=== PATIENT | female | born 1995 | race American Indian/Alaskan Native ===

== ENCOUNTER 2017-08-06 03:42 | Emergency (ER) | payer OTHER ==
[2017-08-06 04:30] LABS: Basophils % (Auto) 0.6 % (0.0-1.8); Eosinophils % (Auto) 1.1 % (0.0-4.3); Hemoglobin 10.5 gm/dl (10.1-14.3); Mean Corpuscular HGB Conc 34 % (30-34); Mean Corpuscular Hemoglobin 31 pg (28-32); Mean Corpuscular Volume 92 fl (79-97); Platelet Count 375 K/mm3 (140-440); Red Blood Count 3.38 M/mm3 (3.65-5.03); Red Cell Distribution Width 12.4 % (13.2-15.2); White Blood Count 11.6 K/mm3 (4.5-11.0)
[2017-08-06] MEDS ORDERED: NACL 0.9% 1000 ML 1,000 ML IV ONE (04:37)
[2017-08-06] MEDS ORDERED: PEPCID IV ONE (04:39)
--- NOTE | 2017-08-06 04:44 | Emergency Department Report ---
ED Abdominal Pain HPI - General Chief Complaint: Chest Pain Stated Complaint: CP Time Seen by Provider: 08/06/17 04:32 Source: patient Mode of arrival: Ambulatory Limitations: No Limitations - History of Present Illness Initial Comments: Patient is 22 years old female, 9 weeks presented with epigastric pain that is start all of a sudden while she was sleeping. Patient describes her pain as starting from the epigastric area going all over after her throat. Patient denied any chest pain or short shortness of breath. No fever. MD Complaint: abdominal pain -: Sudden Location: epigastric Radiation: chest Migration to: no migration Severity: moderate Severity scale (0 -10): 4 Consistency: constant - Related Data Allergies Allergy/AdvReac Type Severity Reaction Status Date / Time No Known Allergies Allergy Unverified 08/06/17 04:07 ED Review of Systems ROS: Stated complaint: CP Other details as noted in HPI Comment: All other systems reviewed and negative Constitutional: denies: chills, diaphoresis Respiratory: denies: cough, orthopnea, shortness of breath, SOB with exertion Cardiovascular: denies: chest pain, palpitations Gastrointestinal: abdominal pain. denies: nausea, vomiting, diarrhea, constipation, hematemesis Genitourinary: frequency. denies: dysuria Neurological: denies: headache, weakness, numbness ED Past Medical Hx - Past Medical History Previous Medical History?: No - Surgical History Past Surgical History?: No - Social History Smoking Status: Never Smoker Substance Use Type: None ED Physical Exam - General Limitations: No Limitations General appearance: alert, in no apparent distress, anxious - Head Head exam: Present: atraumatic, normocephalic, normal inspection - Eye Eye exam: Present: normal appearance, PERRL - ENT ENT exam: Present: normal exam, normal orophraynx, mucous membranes moist - Neck Neck exam: Present: normal inspection, full ROM. Absent: tenderness, meningismus, lymphadenopathy, thyromegaly - Respiratory Respiratory exam: Present: normal lung sounds bilaterally - Cardiovascular Cardiovascular Exam: Present: regular rate, normal rhythm, normal heart sounds - GI/Abdominal GI/Abdominal exam: Present: soft, normal bowel sounds. Absent: distended, tenderness, guarding, rebound, rigid, diminished bowel sounds, organomegaly, mass, bruit, pulsatile mass, hernia - Extremities Exam Extremities exam: Present: normal inspection, full ROM, normal capillary refill - Back Exam Back exam: Present: normal inspection. Absent: CVA tenderness (R), CVA tenderness (L) - Neurological Exam Neurological exam: Present: alert, oriented X3, CN II-XII intact, normal gait - Skin Skin exam: Present: warm, intact, normal color. Absent: cyanosis, diaphoretic, erythema, urticaria ED Course Vital Signs 08/06/17 08/06/17 08/06/17 03:57 04:03 04:40 Temperature 99.1 F 99.1 F Pulse Rate 95 H 102 H Respiratory 20 Rate Blood Pressure 113/43 113/43 O2 Sat by Pulse 100 100 78 L Oximetry 08/06/17 08/06/17 05:00 05:02 Temperature 98.4 F Pulse Rate 85 Respiratory 17 14 Rate Blood Pressure 107/56 O2 Sat by Pulse 99 Oximetry - Reevaluation(s) Reevaluation #1: 08/06/17 05:52 Patient stated that she is feeling much better, pain is almost resolved. ED Medical Decision Making - Lab Data Result diagrams: 08/06/17 04:17 08/06/17 04:17 Critical care attestation.: If time is entered above; I have spent that time in minutes in the direct care of this critically ill patient, excluding procedure time. ED Disposition Clinical Impression: Abdominal pain affecting Disposition: DC-01 TO HOME OR SELFCARE Is pt being admited?: No Condition: Stable Instructions: Gastroesophageal Reflux Disease (ED)
[2017-08-06 04:47] LABS: Anion Gap 19 mmol/L; BUN/Creatinine Ratio 13; Blood Urea Nitrogen 5 mg/dL (7-17); Calcium 9.1 mg/dL (8.4-10.2); Carbon Dioxide 20 mmol/L (22-30); Chloride 98.8 mmol/L (98-107); Glucose 100 mg/dL (65-100); Potassium 3.9 mmol/L (3.6-5.0); Sodium 134 mmol/L (137-145)
[2017-08-06 06:11] VITALS: BP 103/52
[2017-08-06 06:20] LABS: Bacteria,Urine 4+ /HPF (Negative); Bilirubin,Urine NEG (Negative); Blood,Urine NEG (Negative); Ketones,Urine NEG (Negative); Leukocyte Esterase,Urine NEG (Negative); Mucus,Urine FEW /HPF; Nitrite,Urine NEG (Negative); Protein,Urine <15 mg/dL mg/dL (Negative); Urobilinogen,Urine < 2.0 mg/dL (<2.0)
== END 2017-08-06 06:30 | disposition home or self-care (01) ==
LOC: ED 03:42
DX: O26.891 Other specified pregnancy related conditions, first trimester (principal); R10.13 Epigastric pain; Z53.21 Procedure and treatment not carried out due to patient leaving prior to being seen by health care provider; Z3A.09 9 weeks gestation of pregnancy
CPT/HCPCS: 36415; 80048; 81001; 84484; 85025; 93005; 93010; 96361; 96374; 99284; J7030

== ENCOUNTER 2018-02-12 22:44 | Outpatient (CLI) | payer OTHER ==
[2018-02-12 23:21] VITALS: BP 118/58
== END 2018-02-13 00:03 | disposition home or self-care (01) ==
LOC: TRG 22:44
PROVIDERS: ATTEND Obstetrics & Gynecology
DX: O47.1 False labor at or after 37 completed weeks of gestation (principal); Z3A.38 38 weeks gestation of pregnancy
CPT/HCPCS: 59025

== ENCOUNTER 2018-02-28 15:43 | Inpatient (IN) | payer OTHER ==
[2018-02-28] MEDS ORDERED: ePHEDrine SULFATE IV PRN (19:01)
[2018-02-28] MEDS ORDERED: BRETHINE SUB-Q PRN (19:01)
[2018-02-28] MEDS ORDERED: MINERAL OIL PO PRN (19:01)
[2018-02-28] MEDS ORDERED: XYLOCAINE 2% INFILTRATI ONE (19:01)
[2018-02-28] MEDS ORDERED: PHENERGAN PO PRN (19:01)
[2018-02-28] MEDS ORDERED: BRETHINE IVP PRN (19:01)
[2018-02-28] MEDS ORDERED: NARCAN 0.4 MG/1 ML IV PRN (19:01)
[2018-02-28] MEDS ORDERED: STADOL IV PRN (19:01)
[2018-02-28] MEDS ORDERED: ZOFRAN IV PRN (19:01)
[2018-02-28 19:26] LABS: Hemoglobin 10.9 gm/dl (10.1-14.3); Mean Corpuscular HGB Conc 33 % (30-34); Mean Corpuscular Hemoglobin 30 pg (28-32); Mean Corpuscular Volume 90 fl (79-97); Platelet Count 417 K/mm3 (140-440); Red Blood Count 3.69 M/mm3 (3.65-5.03); Red Cell Distribution Width 13.6 % (13.2-15.2)
[2018-02-28] MEDS: LACTATED RINGERS 1,000 ML IV SCH (19:54)
[2018-02-28] MEDS ORDERED: PITOCin/NS 30 UNIT/500ML 30 UNITS/500 ML BAG IV SCH ×2 (20:00)
[2018-02-28] MEDS ORDERED: PITOCin/NS 20 UNIT/1000ML DRIP 20 UNITS/1,000 ML BAG IV SCH (20:00)
--- NOTE | 2018-02-28 23:34 | History and Physical Report ---
History of Present Illness Date of examination: 02/28/18 Date of admission: 02/28/18 15:43 Chief complaint: sent over to hospital for IOL for BPP 4/8 History of present illness: This is a 22 yo at 40+2 weeks that was seen in clinic for routine visit and noted to have a BPP 4/10. it was decided to begin and initate IOL .She is apatient of [facility] late in starting at 27 weeks. During her care it was noted that patient ws poly but resolved in 02/01. GBS neg. Past History Past Medical History: no pertinent history Past Surgical History: no surgical history Family/Genetic History: hypertension (mother) Social history: . denies: smoking, alcohol abuse, prescription drug abuse - Obstetrical History Expected Date of Delivery: 02/26/18 Actual Gestation: 40 Week(s) 2 Day(s) : 1 Para: 0 Hx # Term Pregnancies: 0 Number of Pregnancies: 0 Spontaneous Abortions: 0 Induced : 0 Number of Living Children: 0 Medications and Allergies Allergies Allergy/AdvReac Type Severity Reaction Status Date / Time No Known Allergies Allergy Verified 02/28/18 19:15 Home Medications Medication Instructions Recorded Confirmed Last Taken Type Famotidine [Pepcid] 20 mg PO QHS #5 tablet 08/06/17 02/28/18 Unknown Rx Nitrofurantoin Randolph/M-Cryst 100 mg PO Q12HR #14 capsule 08/06/17 02/28/18 Unknown Rx [Macrobid CAP] Active Meds: Active Medications Butorphanol Tartrate (Stadol) 2 mg IV Q2H PRN PRN Reason: Pain , Severe (7-10) Ephedrine Sulfate (Ephedrine Sulfate) 10 mg IV Q2M PRN PRN Reason: Hypotension Fentanyl (Sublimaze) 100 mcg IV Q2H PRN PRN Reason: Labor Pain Lactated Ringer's (Lactated Ringers) 1,000 mls @ 125 mls/hr IV DIRECT MITCHELL Last Admin: 02/28/18 19:54 Dose: 125 mls/hr Oxytocin/Sodium Chloride (Pitocin/Ns 20 Unit/1000ml Drip) 20 units in 1,000 mls @ 125 mls/hr IV DIRECT MITCHELL Oxytocin/Sodium Chloride (Pitocin/Ns 30 Unit/500ml) 30 units in 500 mls @ 1 mls /hr IV TITR MITCHELL; Protocol Oxytocin/Sodium Chloride (Pitocin/Ns 30 Unit/500ml) 30 units in 500 mls @ 0 mls /hr IV TITR MITCHELL; Protocol Mineral Oil (Mineral Oil) 30 ml PO QHS PRN PRN Reason: Constipation Naloxone HCl (Narcan 0.4 Mg/1 Ml) 0.1 mg IV Q2MIN PRN PRN Reason: Res Rate </= 8 or 02 SAT < 92% Ondansetron HCl (Zofran) 4 mg IV Q8H PRN PRN Reason: Nausea And Vomiting Promethazine HCl (Phenergan) 25 mg PO Q6H PRN PRN Reason: Nausea And Vomiting Terbutaline Sulfate (Brethine) 0.25 mg SUB-Q ONCE PRN PRN Reason: Hyperstimulation/Hypertonicity Terbutaline Sulfate (Brethine) 0.25 mg IVP ONCE PRN PRN Reason: Hyperstimulation/Hypertonicity Review of Systems All systems: negative - Vital Signs Vital signs: Vital Signs Pulse Pulse Ox 109 H 99 02/28/18 16:11 02/28/18 16:11 Temp Pulse Resp BP Pulse Ox 98.9 F 81 16 104/51 99 02/28/18 19:16 02/28/18 22:54 02/28/18 19:16 02/28/18 22:54 02/28/18 18:31 - Physical Exam Breasts: Positive: normal Cardiovascular: Regular rate, Normal S1 Lungs: Positive: Clear to auscultation, Normal air movement Abdomen: Positive: normal appearance, soft, normal bowel sounds. Negative: distention, tenderness, guarding Genitourinary (Female): Positive: normal external genitalia, normal perenium Vulva: both: normal Uterus: Positive: normal size Anus/Rectum: Positive: normal perianal skin Extremities: Positive: normal Deep Tendon Reflex Grade: Normal +2 - Obstetrical FHR: category 1 Cervical Dilatation: 1 Cervical Effacement Percentage: 50 station: -3 Uterine Contraction Pattern: Irregular Uterine Tone Measurement Phase: Contraction Uterine Contraction Intensity: Mild Results Result Diagrams: 02/28/18 16:15 All other labs normal. Assessment and Plan A/P HD#1 IOL for BPP 11/20 admit with close monirot of and maternal status will consider low dose pitocin for ripening IVF, labs expect vaginal delivery offer epidural when appropriate
[2018-03-01] MEDS: LACTATED RINGERS 1,000 ML IV SCH ×3 (03:19→22:56)
[2018-03-01] MEDS: SUBLIMAZE IV PRN ×2 (13:48→17:22)
--- NOTE | 2018-03-01 14:06 | Progress Note ---
Assessment and Plan A: IUP at 40w3d BPP 4/10 undergoing induction of labor P: Continue routine intrapartum management Closely monitor maternal and status Subjective - Subjective Date of service: 03/01/18 Principal diagnosis: BPP 4/10 undergoing induction of labor Interval history: Pt uncomfortable with contractions presently. s/p low dose pitocin overnight. Patient reports: contractions, no new complaints, no loss of fluid, no vaginal bleeding Objective - Vital Signs Vital Signs: Vital Signs - 12hr 03/01/18 03/01/18 03/01/18 02:24 02:30 02:55 Temperature 98.3 F Pulse Rate 91 H 91 H 82 Respiratory 16 Rate Blood Pressure 105/55 113/62 Blood Pressure 105/55 [Right] O2 Sat by Pulse Oximetry 03/01/18 03/01/18 03/01/18 03:54 04:54 05:55 Temperature Pulse Rate 77 76 88 Respiratory Rate Blood Pressure 110/57 118/56 119/56 Blood Pressure [Right] O2 Sat by Pulse Oximetry 03/01/18 03/01/18 03/01/18 06:17 06:23 06:55 Temperature 97.9 F Pulse Rate 80 80 78 Respiratory 16 Rate Blood Pressure 118/56 124/55 Blood Pressure 118/56 [Right] O2 Sat by Pulse Oximetry 03/01/18 03/01/18 03/01/18 07:56 10:18 10:54 Temperature Pulse Rate 85 62 72 Respiratory Rate Blood Pressure 112/55 112/53 Blood Pressure [Right] O2 Sat by Pulse 100 Oximetry 03/01/18 13:54 Temperature Pulse Rate 71 Respiratory Rate Blood Pressure 116/59 Blood Pressure [Right] O2 Sat by Pulse Oximetry - Exam Breasts: deferred Abdomen: Present: normal appearance (gravid ) FHR: category 2 Uterine Contraction Monitor Mode: External Cervical Dilatation: 2 Cervical Effacement Percentage: 80 station: -3 Uterine Contraction Pattern: Irregular Uterine Tone Measurement Phase: Resting Extremities: normal - Labs Labs: Laboratory Results - last 24 hr 02/28/18 02/28/18 02/28/18 16:15 16:15 16:15 WBC 10.6 RBC 3.69 Hgb 10.9 Hct 33.0 MCV 90 MCH 30 MCHC 33 RDW 13.6 Plt Count 417 RPR Nonreactive Blood Type O POSITIVE Antibody Screen Negative
[2018-03-01] MEDS ORDERED: NARCAN 2 MG/2 ML IV PRN (21:51)
[2018-03-01] MEDS ORDERED: ePHEDrine SULFATE IV PRN (21:51)
--- NOTE | 2018-03-01 21:51 | Anesthesia Consultation ---
Anesthesia Consult and Med Hx Date of service: 03/01/18 - Airway Anesthetic Teeth Evaluation: Good ROM Head & Neck: Adequate Mental/Hyoid Distance: Adequate Mallampati Class: Class II Intubation Access Assessment: Good - Pulmonary Exam CTA: Yes - Cardiac Exam Cardiac Exam: No Murmur - Pre-Operative Health Status ASA Pre-Surgery Classification: ASA2 Proposed Anesthetic Plan: Epidural - Pulmonary Hx Asthma: No COPD: No Hx Pneumonia: No - Cardiovascular System Hx Hypertension: No - Central Nervous System Hx Seizures: No Hx Psychiatric Problems: No - Endocrine Hx Renal Disease: No Hx End Stage Renal Disease: No Hx Hypothyroidism: No Hx Hyperthyroidism: No - Hematic Hx Anemia: No Hx Sickle Cell Disease: No - Other Systems Hx Alcohol Use: No
[2018-03-01] MEDS: fentaNYL-BUPIV 2 MCG/ML-0.125% 200 MCG/100 ML BAG EPIDURAL SCH (22:56)
[2018-03-02] MEDS: fentaNYL-BUPIV 2 MCG/ML-0.125% 200 MCG/100 ML BAG EPIDURAL SCH ×2 (06:38→14:36)
[2018-03-02] MEDS: LACTATED RINGERS 1,000 ML IV SCH (14:35)
[2018-03-02] MEDS ORDERED: MARCAINE 0.5% 30 ML INFILTRATI ONE (17:55)
[2018-03-02] MEDS ORDERED: XYLOCAINE 2% INFILTRATI ONE ×2 (21:20→21:59)
--- NOTE | 2018-03-02 21:37 | Procedure Note ---
OB Delivery Note - Delivery Date of Delivery: 03/02/18 Surgeon: BENSON NOONAN Estimated blood loss: 200cc - Vaginal Delivery presentation: vertex Delivery position: OA Intrapartum events: none Delivery induction: oxytocin Delivery augmentation: rupture of membranes Delivery monitor: external FHT, external uterine Route of delivery: Delivery placenta: spontaneous Delivery cord: 3 umbilical vessels Delivery laceration: 2nd degree Delivery repair: vicryl Anesthesia: epidural - Infant A at 1 minute: 8 at 5 minutes: 9 Gender: Female (7 pounds 13 ounces)
[2018-03-02] MEDS ORDERED: DULCOLAX PR PRN (23:40)
[2018-03-02] MEDS ORDERED: MILK OF MAGNESIA PO PRN (23:40)
[2018-03-02] MEDS ORDERED: TYLENOL PO PRN (23:40)
[2018-03-02] MEDS ORDERED: LANSINOH TP PRN (23:40)
[2018-03-02] MEDS ORDERED: TUCKS PAD TP PRN (23:40)
[2018-03-02] MEDS ORDERED: SODIUM CHLORIDE FLUSH SYRINGE 10 ML IV PRN (23:40)
[2018-03-02] MEDS ORDERED: PHENERGAN PR PRN (23:40)
[2018-03-02] MEDS ORDERED: NORCO 5/325 PO PRN (23:40)
[2018-03-02] MEDS ORDERED: ZOFRAN IV PRN (23:40)
[2018-03-02] MEDS ORDERED: PHENERGAN PO PRN (23:40)
[2018-03-02] MEDS ORDERED: BENADRYL PO PRN (23:40)
[2018-03-02] MEDS: MOTRIN PO SCH (23:59)
[2018-03-02] MEDS: COLACE PO SCH (23:59)
[2018-03-03] MEDS: MOTRIN PO SCH ×3 (05:34→18:10)
[2018-03-03] MEDS ORDERED: BOOSTRIX IM ONE (06:00)
[2018-03-03] MEDS ORDERED: PRENATAL VITAMIN PO SCH (10:00)
[2018-03-03] MEDS: COLACE PO SCH (10:03)
[2018-03-03 14:25] LABS: Hematocrit 31.7 % (30.3-42.9); Hemoglobin 10.4 gm/dl (10.1-14.3)
--- NOTE | 2018-03-03 15:48 | Progress Note ---
Assessment and Plan PPD 1 s/p . Doing well. Patient's requesting discharge on tonight at the 24 hour [place]. Will discharge mom if baby ok to go. Subjective - Subjective Date of service: 03/03/18 Principal diagnosis: BPP 4/10 undergoing induction of labor Patient reports: appetite normal, voiding normally, pain well controlled, ambulating normally : doing well Objective - Vital Signs Latest vital signs: Vital Signs Temp Pulse Resp BP BP Pulse Ox 03/03/18 12:19 18 03/03/18 12:00 97.9 F 84 18 109/66 03/03/18 08:00 97.5 F L 84 20 108/61 03/03/18 04:30 98.6 F 96 H 18 123/68 03/03/18 00:40 99.1 F 75 18 107/44 03/02/18 23:04 91 H 147/67 03/02/18 22:57 92 H 98 03/02/18 22:52 100 H 99 03/02/18 22:50 102 H 152/69 03/02/18 22:47 91 H 99 03/02/18 22:42 87 98 03/02/18 22:37 100 H 152/80 03/02/18 22:36 96 03/02/18 22:19 109 H 169/88 03/02/18 22:05 111 H 137/47 03/02/18 22:03 101 H 97 03/02/18 21:58 102 H 98 03/02/18 21:53 93 H 99 03/02/18 21:49 92 H 155/72 03/02/18 21:48 91 H 99 03/02/18 21:45 99.1 F 03/02/18 21:43 100 H 99 03/02/18 21:38 100 H 99 03/02/18 21:35 103 H 148/101 03/02/18 21:34 108 H 94 03/02/18 21:33 109 H 94 03/02/18 21:27 119 H 136/74 93 03/02/18 21:24 92 03/02/18 21:21 117 H 96 03/02/18 21:16 102 H 98 03/02/18 21:10 105 H 99 03/02/18 21:05 107 H 98 03/02/18 21:02 118 H 90 07/21/18 21:00 89 100 18 20:57 100.0 F H 89 18 20:55 87 98 18 20:50 90 99 18 20:45 94 H 99 18 20:40 89 99 18 20:35 120 H 100 18 20:30 120 H 100 18 20:22 117 H 99 18 20:20 103 H 138/104 18 20:16 113 H 99 18 20:11 106 H 98 18 20:06 106 H 98 18 20:01 96 H 98 18 19:56 97 H 96 03/02/18 19:50 101 H 97 18 19:46 110 H 97 18 19:41 101 H 124/90 98 18 19:36 94 H 98 18 19:35 98.2 F 18 03/02/18 19:31 97 H 94 18 19:26 91 H 98 18 19:21 90 97 18 19:16 83 96 18 19:13 86 118/62 18 19:12 71 91 18 19:11 103 H 98 18 19:06 97 H 97 18 19:01 95 H 96 18 18:56 93 H 97 18 18:51 89 97 18 18:46 92 H 97 18 18:41 88 142/82 96 18 18:36 86 96 18 18:31 90 97 18 18:26 83 96 18 18:21 85 96 18 18:16 83 96 18 18:11 80 136/84 98 18 18:09 87 94 18 18:06 92 H 98 18 18:01 99 H 97 18 17:56 85 98 18 17:51 92 H 99 18 17:46 92 H 99 18 17:41 88 126/68 97 07/21/18 17:36 91 H 98 03/02/18 17:31 95 H 97 03/02/18 17:26 91 H 98 03/02/18 17:21 92 H 97 03/02/18 17:16 90 97 03/02/18 17:11 78 132/68 98 03/02/18 17:06 99 H 99 03/02/18 17:01 87 94 03/02/18 16:58 83 94 03/02/18 16:56 80 95 03/02/18 16:51 79 95 03/02/18 16:47 82 94 03/02/18 16:46 84 95 03/02/18 16:41 81 129/68 92 03/02/18 16:36 82 96 03/02/18 16:31 80 97 03/02/18 16:26 86 97 03/02/18 16:21 87 97 03/02/18 16:16 85 95 03/02/18 16:11 85 117/58 94 03/02/18 16:06 85 96 03/02/18 16:01 84 96 03/02/18 15:56 81 97 03/02/18 15:51 104 H 97 Intake and Output 03/03/18 03/03/18 03/03/18 06:59 14:59 22:59 Intake Total 240 Output Total 1800 600 Balance -1800 -360 Intake: Oral 240 Output: Urine 1800 600 Void 1800 600 Other: Total, Intake Amount 120 Total, Output Amount 900 600 # Voids Void 1 - Exam Cardiovascular: Present: Regular rate, Normal S1, Normal S2 Lungs: Present: Clear to auscultation, Normal air movement Abdomen: Present: normal appearance, soft, normal bowel sounds Uterus: Present: normal, firm, fundal height below umbilicus Extremities: Present: normal
--- NOTE | 2018-03-03 15:50 | Discharge Summary ---
Providers - Providers Date of Admission: 02/28/18 15:43 Date of discharge: 03/03/18 Attending physician: JOI RICHARDS MD Primary care physician: JOI RICHARDS MD Hospitalization Reason for admission: induction of labor Delivery: Episiotomy: none Laceration: 2nd degree Discharge diagnosis: IUP at term delivered [place] baby: female Hospital course: unremarkable Condition at discharge: Good Disposition: DC-01 TO HOME OR SELFCARE Plan - Discharge Medications Prescriptions: HYDROcodone/APAP 5-325 [[place] 5-325 mg TAB] 2 each PO Q6H PRN #30 tablet PRN Reason: Pain, Moderate (4-6) Ibuprofen [Motrin 600 MG tab] 600 mg PO Q6HR #40 tablet - Provider Discharge Summary Activity: routine, no sex for 6 weeks, no heavy lifting 4 weeks, no strenuous exercise Diet: routine Instructions: routine Additional instructions: [] Smoking cessation referral if applicable(refer to patient education folder for contact #) [] Refer to [facility]'s [facility] Booklet Call your doctor immediately for: * Fever > 100.5 * Heavy vaginal bleeding ( >1 pad per hour) * Severe persistent headache * Shortness of breath * Reddened, hot, painful area to leg or breast * Drainage or odor from incision. * Keep incision clean and dry at all times and follow doctor's instructions regarding bathing/showering - Follow up plan Follow up: JOI RICHARDS MD [Primary Care Provider] - 6 Weeks
[2018-03-03 18:21] VITALS: BP 119/60
== END 2018-03-03 22:30 | disposition home or self-care (01) | DRG 775 ==
LOC: LD 15:43 → OB 03-02 23:18 → UNDODISIN 03-03 15:55
PROVIDERS: ADMIT Obstetrics & Gynecology; ATTEND Obstetrics & Gynecology
PROC: 10E0XZZ Delivery of Products of Conception, External Approach (ICD-10-PCS; 2018-03-02)
PROC: 0KQM0ZZ Repair Perineum Muscle, Open Approach (ICD-10-PCS; 2018-03-02)
PROC: 3E0P7VZ Introduction of Hormone into Female Reproductive, Via Natural or Artificial Opening (ICD-10-PCS; 2018-03-02)
PROC: 3E033VJ Introduction of Other Hormone into Peripheral Vein, Percutaneous Approach (ICD-10-PCS; 2018-03-02)
PROC: 3E0R3BZ Introduction of Anesthetic Agent into Spinal Canal, Percutaneous Approach (ICD-10-PCS; 2018-03-02)
PROC: 00HU33Z Insertion of Infusion Device into Spinal Canal, Percutaneous Approach (ICD-10-PCS; 2018-03-02)
PROC: 3E0234Z Introduction of Serum, Toxoid and Vaccine into Muscle, Percutaneous Approach (ICD-10-PCS; principal; 2018-03-03)
DX: O70.1 Second degree perineal laceration during delivery (principal); Z37.0 Single live birth; Z3A.40 40 weeks gestation of pregnancy; Z23 Encounter for immunization
CPT/HCPCS: 36415; 85014; 85018; 85027; 86592; 86850; 86900; 86901; 88307; 90471; 90715; J2590; J3010; J7120